=== PATIENT | male | born 1930 | race Caucasian/White ===

== ENCOUNTER 2017-11-29 10:48 | Emergency (ER) | payer MEDICARE, OTHER ==
[2017-11-29 11:26] LABS: POC GLUCOSE 170 mg/dL (70-99)
[2017-11-29 11:35] LABS: ADD MAN DIFF? NO
[2017-11-29 11:39] LABS: BASO % 1 % (0-3); EOS % 2 % (0-3); HEMATOCRIT 31.7 % (39.0-53.0); HEMOGLOBIN 10.3 g/dL (13.0-17.5); LYMPH # 1.3 x10^3/uL (1.0-4.8); LYMPH % 27 % (24-48); MEAN CORPUSCULAR HEMOGLOBIN 29 pg (25-35); MEAN CORPUSCULAR HGB CONC 33 g/dL (31-37); MEAN CORPUSCULAR VOLUME 88 fL (79-100); MONO % 6 % (0-9); NEUT % 64 % (31-73); PLATELET COUNT 238 x10^3/uL (140-400); RED BLOOD COUNT 3.62 x10^6/uL (4.30-5.70); RED CELL DISTRIBUTION WIDTH 13.6 % (11.5-14.5); WHITE BLOOD COUNT 4.9 x10^3/uL (4.0-11.0)
[2017-11-29 11:49] LABS: ANION GAP 11 (6-14); BLOOD UREA NITROGEN 38 mg/dL (8-26); BUN/CREATININE RATIO 24 (6-20); CALCIUM 9.1 mg/dL (8.5-10.1); CARBON DIOXIDE 23 mmol/L (21-32); CHLORIDE 103 mmol/L (98-107); CREATININE 1.6 mg/dL (0.7-1.3); GFR 41.2; GLUCOSE 214 mg/dL (70-99); POTASSIUM 4.3 mmol/L (3.5-5.1); SODIUM 137 mmol/L (136-145)
[2017-11-29 11:55] LABS: ALBUMIN 3.4 g/dL (3.4-5.0); ALBUMIN/GLOBULIN RATIO 0.9 (1.0-1.7); ALK PHOS 53 U/L (46-116); ALT (SGPT) 13 U/L (16-63); AST (SGOT) 14 U/L (15-37); TOTAL BILIRUBIN 0.2 mg/dL (0.2-1.0); TOTAL PROTEIN 7.3 g/dL (6.4-8.2)
[2017-11-29 12:01] LABS: NT-PRO BNP 424 pg/mL (0-449)
[2017-11-29] MEDS: IV NORMAL SALINE 1000ML BAG 1,000 ML IV (12:02)
[2017-11-29 13:45] LABS: BILIRUBIN,URINE NEGATIVE (NEG); GLUCOSE,URINE NEGATIVE (NEG); NITRITE,URINE NEGATIVE (NEG); PROTEIN,URINE NEGATIVE (NEG-TRACE); UROBILINOGEN,URINE 0.2 mg/dL (0.2 mg/dL)
[2017-11-29 14:05] LABS: BACTERIA,URINE FEW /HPF (0-FEW); RBC,URINE 0 /HPF (0-2); SQUAMOUS EPITHELIAL CELL,UR FEW /LPF
[2017-11-29 14:26] LABS: LACTIC ACID 0.5 mmol/L (0.4-2.0)
[2017-11-29 14:30] LABS: AMMONIA < 10 mcmol/L (11-34)
== END 2017-11-29 15:00 | disposition home or self-care (01) ==
LOC: ER 10:48
DX: S00.01XA Abrasion of scalp, initial encounter (principal); S29.9XXA Unspecified injury of thorax, initial encounter; E11.9 Type 2 diabetes mellitus without complications; K21.9 Gastro-esophageal reflux disease without esophagitis; I10 Essential (primary) hypertension; W01.198A Fall on same level from slipping, tripping and stumbling with subsequent striking against other object, initial encounter; Y93.89 Activity, other specified; Y92.090 Kitchen in other non-institutional residence as the place of occurrence of the external cause; Y99.8 Other external cause status
CPT/HCPCS: 36415; 70450; 71010; 71100; 80053; 81001; 82140; 82962; 83605; 83880; 84443; 85025; 87040; 93005; 96360; 99285-25; J7030

== ENCOUNTER 2021-03-06 09:02 | Emergency (ER) | payer MEDICARE, OTHER ==
[~2021-03-06] VITALS: Ht 180.3 cm; Wt 100.0 kg
--- NOTE | 2021-03-06 09:24 | PHYS DOC ---
Past Medical History Past Medical History: Diabetes-Type II, GERD, Hypertension Past Surgical History: Tonsillectomy, Other Additional Past Surgical Histo: HERNIA Smoking Status: Never Smoker Alcohol Use: None Drug Use: None General Adult EDM: Chief Complaint: NEAR SYNCOPE HPI: HPI: Patient is a 89 year old male who was brought here by EMS from home due to nausea vomiting, headache, neck pain. Patient lives alone by himself, up until 2 years ago he was on 10 different medications. He decided to stop taking all his medication because he did not like them. Patient fell in the restroom 10 days ago, hit his head on the ground, loss of consciousness. Patient has had headache and neck pain since. He somehow did not seek medical attention. This morning he called his son to come because he feels nauseous. When his son came patient was found to be confused had several episodes of nausea vomiting. EMS were called, when they arrived to the scene, patient was pale and diaphoresis. He was acting confused, complain of headache and neck pain. Patient denies any abdominal pain, no chest pain, no trouble breathing. Patient denies any extremity pain. Review of Systems: Review of Systems: Constitutional: Denies fever or chills. [] Eyes: Denies change in visual acuity. [] HENT: Denies nasal congestion or sore throat. [] Respiratory: Denies cough or shortness of breath. [] Cardiovascular: Denies chest pain or edema. [] GI: Denies abdominal pain, Positive for nausea, vomiting, no bloody stools or diarrhea. [] : Denies dysuria. [] Musculoskeletal: Denies back pain, positive for neck pain. Integument: Denies rash. [] Neurologic: positive for headache, no focal weakness or sensory changes. [] Endocrine: Denies polyuria or polydipsia. [] Lymphatic: Denies swollen glands. [] Psychiatric: Denies depression or anxiety. [] Heart Score: C/O Chest Pain: N/A Risk Factors: Risk Factors: DM, Current or recent (<one month) smoker, HTN, HLP, family history of CAD, obesity. Risk Scores: Score 0 - 3: 2.5% MACE over next 6 weeks - Discharge Home Score 4 - 6: 20.3% MACE over next 6 weeks - Admit for Clinical Observation Score 7 - 10: 72.7% MACE over next 6 weeks - Early Invasive Strategies Allergies: Allergies: Allergies Coded Allergies Type Severity Reaction Last Updated Verified No Known Drug Allergies 11/29/17 No Physical Exam: PE: Constitutional: Well developed, well nourished, no acute distress, non-toxic appearance. [] HENT: Normocephalic, atraumatic, bilateral external ears normal, oropharynx moist, no oral exudates, nose normal. [] Eyes: PERRLA, EOMI, conjunctiva normal, no discharge. [] Neck: Normal range of motion, no tenderness, supple, no stridor. [] Cardiovascular:Heart rate regular rhythm, no murmur [] Lungs & Thorax: Bilateral breath sounds clear to auscultation [] Abdomen: Bowel sounds normal, soft, no tenderness, no masses, no pulsatile masses. [] Skin: Warm, dry, no erythema, no rash. [] Back: No tenderness, no CVA tenderness. [] Extremities: No tenderness, no cyanosis, no clubbing, ROM intact, no edema. [] Neurologic: Alert and oriented X 3, normal motor function, normal sensory function, no focal deficits noted. [] Psychologic: Affect normal, judgement normal, mood normal. [] Current Patient Data: Labs: Laboratory Tests Test 03/06/21 06:30 03/06/21 09:13 FB-Dhj-Q-Type Natriuretic Peptide 817 pg/mL White Blood Count 4.4 x10^3/uL Red Blood Count 3.32 x10^6/uL Hemoglobin 10.2 g/dL Hematocrit 30.8 % Mean Corpuscular Volume 93 fL Mean Corpuscular Hemoglobin 31 pg Mean Corpuscular Hemoglobin Concent 33 g/dL Red Cell Distribution Width 13.5 % Platelet Count 226 x10^3/uL Neutrophils (%) (Auto) 70 % Lymphocytes (%) (Auto) 25 % Monocytes (%) (Auto) 5 % Eosinophils (%) (Auto) 0 % Basophils (%) (Auto) 1 % Neutrophils # (Auto) 3.0 x10^3/uL Lymphocytes # (Auto) 1.1 x10^3/uL Monocytes # (Auto) 0.2 x10^3/uL Eosinophils # (Auto) 0.0 x10^3/uL Basophils # (Auto) 0.0 x10^3/uL Sodium Level 136 mmol/L Potassium Level 3.7 mmol/L Chloride Level 99 mmol/L Carbon Dioxide Level 20 mmol/L Anion Gap 17 Blood Urea Nitrogen 28 mg/dL Creatinine 1.7 mg/dL Estimated GFR (Cockcroft-Gault) 38.1 BUN/Creatinine Ratio 16 Glucose Level 272 mg/dL Calcium Level 8.7 mg/dL Magnesium Level 1.8 mg/dL Total Bilirubin 0.6 mg/dL Aspartate Amino Transf (AST/SGOT) 26 U/L Alanine Aminotransferase (ALT/SGPT) 20 U/L Alkaline Phosphatase 67 U/L Creatine Kinase 81 U/L Troponin I Quantitative < 0.017 ng/mL Total Protein 7.5 g/dL Albumin 3.7 g/dL Albumin/Globulin Ratio 1.0 Lipase 83 U/L Current Medications Medications (Trade) Dose Ordered Sig/Jorge Route PRN Reason Start Time Stop Time Status Last Admin Dose Admin Ondansetron HCl (Zofran) 4 mg 1X ONCE IVP 03/06/21 09:45 03/06/21 09:46 DC 03/06/21 09:42 Hydralazine HCl (Apresoline Inj) 10 mg 1X ONCE IVP 03/06/21 09:45 03/06/21 09:46 DC 03/06/21 10:17 Hydralazine HCl (Apresoline Inj) 10 mg 1X ONCE IVP 03/06/21 10:45 03/06/21 10:46 DC 03/06/21 10:46 Nicardipine HCl 50 mg/Sodium Chloride 250 ml @ 25 mls/hr CONT PRN IV SEE I/O RECORD 03/06/21 10:45 03/06/21 10:50 EKG: EKG: ekg was done at 909, heart rate of 77 BPM, PVC, NO STEMI. NO P WAVE. Radiology/Procedures: Radiology/Procedures: [][facility] [address] [place] [address] IMAGING REPORT Signed PATIENT: STEFANIE MUÑOZ ACCOUNT: [id number] : 1930 LOCATION: ER AGE: 89 SEX: M EXAM STATUS: REG ER ORD. PHYSICIAN: HOBSON,PETER T DO REASON: fell in the toilet 4 days ago, having neck pain, acting confused since. PROCEDURE: CT HEAD AND CERVICAL SPINE WO CT HEAD AND C-SPINE WO Date: 03/06/2021 9:36 AM Clinical Indication: fell in the toilet 4 days ago, having neck pain, acting confused since. / Spl. Instructions: / History: Comparison: CT head 11/29/2017. Technique: 5 mm axial tomographic images were obtained of the head without c ontrast. These were viewed on brain and bone windows. Noncontrast CT of the cervical spine was performed. Sagittal and coronal reformats were performed and evaluated. One or more of the following dose reduction techniques were utilized: Automated exposure control (AEC), Adjustment of mA and/or kV according to patient size, Use of iterative reconstruction technique such as ASiR, CT scan done according to ALARA and image gently/image wisely HEAD FINDINGS: Acute subarachnoid hemorrhage centered around the midbrain and sixto with extension superiorly into the suprasellar cisterns and inferiorly through the foramen magnum and around the upper cervical spine. Hemorrhage is also within the third and fourth ventricles, with trace hemorrhage layering in the occipital horns of the lateral ventricles. Dilatation of the lateral and third ventricles. Mild generalized cerebral and cerebellar volume loss. Mild nonspecific periventricular hypoattenuation, most commonly seen with chronic small vessel ischemic disease. The visualized paranasal sinuses are normal. The visualized portions of the orbits and globes are normal. The mastoid air cells are clear. No aggressive osseous lesion or fracture. CERVICAL SPINE FINDINGS: The cervical spine is normally aligned. No acute fracture. Partial atlantooccipital assimilation on the right. Moderate multilevel degenerative disc space height loss. Multilevel mild spinal canal stenosis secondary to disc protrusions and marginal osteophytes. Multilevel mild and moderate neuroforaminal narrowing secondary to uncovertebral arthrosis. Multilevel moderate to severe facet arthrosis. Osseous fusion across multiple facet joints. The thyroid gland is normal. No cervical lymphadenopathy. Bilateral carotid atherosclerosis. The visualized aerodigestive tract is normal. The visualized portions of the lungs are clear. IMPRESSION: 1. Acute subarachnoid hemorrhage centered around the midbrain and sixto with extension superiorly into the suprasellar cisterns and inferiorly through the foramen magnum and around the upper cervical spine. CTA is recommended for further evaluation. 2. Intraventricular hemorrhage is also present with dilatation of the lateral and third ventricles suggestive of developing hydrocephalus. 3. No acute cervical spine fracture FOR INTERNAL CODING PURPOSES Critical result: Findings discussed with Dr. Hobson at 03/06/2021 10:29 AM. RESULT CODE: (C) Electronically signed by: Leona Cordero MD (03/06/2021 10:41 AM) [id number] DICTATED and SIGNED BY: LEONA CORDERO MD DATE: 03/06/21 [id number] [facility] [address] [place] [address] IMAGING REPORT Signed PATIENT: STEFANIE MUÑOZ ACCOUNT: [id number] : 1930 LOCATION: ER AGE: 89 SEX: M EXAM STATUS: REG ER ORD. PHYSICIAN: LUPILLO HOBSON DO REASON: soa PROCEDURE: CHEST AP ONLY XR CHEST 1V Clinical Indication: Reason: soa / Comparison: AP chest November 29, 2017. Findings: The cardiomediastinal silhouette is normal. There are tiny bilateral calcified granulomas. Lungs are clear. There is no pneumothorax. No pleural effusion is appreciated. No acute bone abnormality. There is moderate degenerative endplate spurring of the thoracic spine. IMPRESSION: No acute cardiopulmonary process. Electronically signed by: Carl Busby MD (03/06/2021 10:44 AM) [id number] DICTATED and SIGNED BY: CARL BUSBY MD DATE: 03/06/21 [id number] 0 Course & Med Decision Making: Course & Med Decision Making Pertinent Labs and Imaging studies reviewed. (See chart for details) Patient is an 89-year-old male who is DNR/DNI per his son, who was brought here by EMS from home due to headache, nausea vomiting. Patient was found to be hypertensive urgency, noncompliant with his hypertensive medication. CT scan his head and C-spine show subarachnoid hemorrhage suspicious for ruptured aneurysm. Patient was given hydralazine IV for his hypertension, and a Cardene drip was started. 10:30 AM: this physician discussed patient's condition and CT finding with the Neurosurgeon corporate relations manager, Dr. John Herrera. He said he reviewed the CT scan and recommended that patient need to be urgently transferred to [facility], HE SUSPECTED THAT PATIENT HAS A RUPTURED Aneurysm. He said he has a big case right now in the OR, cannot see patient himself. 10:42 AM, this physician called [facility], discussed with the triage nurse there, gave all information, triage nurse will contact their neurosurgeon and will call back later. At 1200, triage nurse called back, accepted patient for transfer there, accepted by Dr. Garett Stoll, neurosurgeon. Discussed with patient and his son who area amenable to plan of care. Critical care time was [45] minutes which includes time at bedside, spent in discussion of patient's care with specialist and/or family members, with in terpretation of laboratory and/or radiological studies and is exclusive of procedures. Dragon Disclaimer: Dragon Disclaimer: This electronic medical record was generated, in whole or in part, using a voice recognition dictation system. Departure Departure Impression: Primary Impression: Subarachnoid hemorrhage Additional Impressions: Hypertensive urgency Hyperglycemia Disposition: 02 DC/TRF OTHER SHORT TERM HOS (Transfer to [facility], Accepted by Dr. Garett Stoll) Condition: STABLE Referrals: HALEY GARCIA (PCP) LUPILLO HOBSON DO Mar 06, 2021 09:24
[2021-03-06 09:27] LABS: BASO % 1 % (0-3); EOS % 0 % (0-3); HEMATOCRIT 30.8 % (39.0-53.0); HEMOGLOBIN 10.2 g/dL (13.0-17.5); LYMPH # 1.1 x10^3/uL (1.0-4.8); LYMPH % 25 % (24-48); MEAN CORPUSCULAR HEMOGLOBIN 31 pg (25-35); MEAN CORPUSCULAR HGB CONC 33 g/dL (31-37); MEAN CORPUSCULAR VOLUME 93 fL (79-100); MONO # 0.2 x10^3/uL (0.0-1.1); MONO % 5 % (0-9); NEUT % 70 % (31-73); PLATELET COUNT 226 x10^3/uL (140-400); RED BLOOD COUNT 3.32 x10^6/uL (4.30-5.70); RED CELL DISTRIBUTION WIDTH 13.5 % (11.5-14.5); WHITE BLOOD COUNT 4.4 x10^3/uL (4.0-11.0)
[2021-03-06] MEDS ORDERED: hydrALAZINE 20 MG/ML VIAL. IVP ONE ×2 (09:45→10:45)
[2021-03-06] MEDS ORDERED: ONDANSETRON PF 4 MG/2 ML VIAL. IVP ONE (09:45)
[2021-03-06 09:46] LABS: CALCIUM 8.7 mg/dL (8.5-10.1); CREATININE 1.7 mg/dL (0.7-1.3); GFR 38.1; POTASSIUM 3.7 mmol/L (3.5-5.1)
--- NOTE | 2021-03-06 09:51 | PDOC2 ---
CARDIAC CONSULT ALLERGIES ALLERGIES: Coded Allergies: No Known Drug Allergies (Unverified , 11/29/17) VITALS/I&O VITALS/I&O: Vital Signs Date Time Temp Pulse Resp B/P (MAP) Pulse Ox O2 Delivery O2 Flow Rate FiO2 03/06/21 09:07 97.6 84 18 234/91 (138) 98 Room Air 97.6 LABS Lab: Laboratory Tests Test 03/06/21 09:13 White Blood Count 4.4 x10^3/uL (4.0-11.0) Red Blood Count 3.32 x10^6/uL (4.30-5.70) L Hemoglobin 10.2 g/dL (13.0-17.5) L Hematocrit 30.8 % (39.0-53.0) L Mean Corpuscular Volume 93 fL (79-100) Mean Corpuscular Hemoglobin 31 pg (25-35) Mean Corpuscular Hemoglobin Concent 33 g/dL (31-37) Red Cell Distribution Width 13.5 % (11.5-14.5) Platelet Count 226 x10^3/uL (140-400) Neutrophils (%) (Auto) 70 % (31-73) Lymphocytes (%) (Auto) 25 % (24-48) Monocytes (%) (Auto) 5 % (0-9) Eosinophils (%) (Auto) 0 % (0-3) Basophils (%) (Auto) 1 % (0-3) Neutrophils # (Auto) 3.0 x10^3/uL (1.8-7.7) Lymphocytes # (Auto) 1.1 x10^3/uL (1.0-4.8) Monocytes # (Auto) 0.2 x10^3/uL (0.0-1.1) Eosinophils # (Auto) 0.0 x10^3/uL (0.0-0.7) Basophils # (Auto) 0.0 x10^3/uL (0.0-0.2) Laboratory Tests 03/06/21 09:13 RYAN MARKS APRN Mar 06, 2021 09:51
[2021-03-06 09:52] LABS: ALBUMIN 3.7 g/dL (3.4-5.0); MAGNESIUM 1.8 mg/dL (1.8-2.4); TOTAL BILIRUBIN 0.6 mg/dL (0.2-1.0); TOTAL PROTEIN 7.5 g/dL (6.4-8.2)
--- NOTE | 2021-03-06 10:25 | EKG ---
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
--- NOTE | 2021-03-06 10:25 | EKG ---
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
--- NOTE | 2021-03-06 10:43 | RAD ---
CT HEAD AND C-SPINE WO Date: 03/06/2021 9:36 AM Clinical Indication: fell in the toilet 4 days ago, having neck pain, acting confused since. / Spl. I nstructions: / History: Comparison: CT head 11/29/2017. Technique: 5 mm axial tomographic images were obtained of the head without contrast. These were view ed on brain and bone windows. Noncontrast CT of the cervical spine was performed. Sagittal and dodge l reformats were performed and evaluated. One or more of the following dose reduction techniques were utilized: Automated exposure control (AEC), Adjustment of mA and/or kV according to patient size, Us e of iterative reconstruction technique such as ASiR, CT scan done according to ALARA and image gentl y/image wisely HEAD FINDINGS: Acute subarachnoid hemorrhage centered around the midbrain and sixto with extension superiorly into th e suprasellar cisterns and inferiorly through the foramen magnum and around the upper cervical spine. Hemorrhage is also within the third and fourth ventricles, with trace hemorrhage layering in the occ ipital horns of the lateral ventricles. Dilatation of the lateral and third ventricles. Mild generalized cerebral and cerebellar volume loss. Mild nonspecific periventricular hypoattenuatio n, most commonly seen with chronic small vessel ischemic disease. The visualized paranasal sinuses are normal. The visualized portions of the orbits and globes are no rmal. The mastoid air cells are clear. No aggressive osseous lesion or fracture. CERVICAL SPINE FINDINGS: The cervical spine is normally aligned. No acute fracture. Partial atlantooccipital assimilation on t he right. Moderate multilevel degenerative disc space height loss. Multilevel mild spinal canal stenosis second stephon to disc protrusions and marginal osteophytes. Multilevel mild and moderate neuroforaminal narrowi ng secondary to uncovertebral arthrosis. Multilevel moderate to severe facet arthrosis. Osseous fusio n across multiple facet joints. The thyroid gland is normal. No cervical lymphadenopathy. Bilateral carotid atherosclerosis. The visu alized aerodigestive tract is normal. The visualized portions of the lungs are clear. IMPRESSION: 1. Acute subarachnoid hemorrhage centered around the midbrain and sixto with extension superiorly into the suprasellar cisterns and inferiorly through the foramen magnum and around the upper cervical spi ne. CTA is recommended for further evaluation. 2. Intraventricular hemorrhage is also present with dilatation of the lateral and third ventricles hunt ggestive of developing hydrocephalus. 3. No acute cervical spine fracture FOR INTERNAL CODING PURPOSES Critical result: Findings discussed with Dr. Kat at 03/06/2021 10:29 AM. RESULT CODE: (C) Electronically signed by: Wes Cordero MD (03/06/2021 10:41 AM) [id number]
--- NOTE | 2021-03-06 10:47 | RAD ---
XR CHEST 1V Clinical Indication: Reason: soa / Comparison: AP chest November 29, 2017. Findings: The cardiomediastinal silhouette is normal. There are tiny bilateral calcified granulomas. Lungs are clear. There is no pneumothorax. No pleural effusion is appreciated. No acute bone abnormality. There is moderate degenerative endplate spurring of the thoracic spine. IMPRESSION: No acute cardiopulmonary process. Electronically signed by: Carl Busby MD (03/06/2021 10:44 AM) [id number]
[2021-03-06] MEDS ORDERED: fentaNYL PF VIAL 100 MCG/2 ML VIAL IVP ONE (11:15)
[2021-03-06 11:20] LABS: PROTHROMBIN TIME PATIENT 12.9 SEC (11.7-14.0)
[2021-03-06 12:14] VITALS: BP 124/51
--- NOTE | 2021-03-07 10:03 | NUR ---
IP: Notified [facility], concerning pt's negative COVID test. Results faxed.
== END 2021-03-06 12:28 | disposition short-term general hospital (02) ==
LOC: ER 09:02
DX: I60.8 Other nontraumatic subarachnoid hemorrhage (principal); I16.0 Hypertensive urgency; Z20.822 Contact with and (suspected) exposure to COVID-19; R11.2 Nausea with vomiting, unspecified; R51.9 Headache, unspecified; E11.65 Type 2 diabetes mellitus with hyperglycemia; M54.2 Cervicalgia; E11.9 Type 2 diabetes mellitus without complications; K21.9 Gastro-esophageal reflux disease without esophagitis; I10 Essential (primary) hypertension; Z90.89 Acquired absence of other organs; Z98.890 Other specified postprocedural states
CPT/HCPCS: 36415; 70450; 71045; 72125; 80053; 82550; 83690; 83735; 83880; 84484; 85025; 85610; 85730; 87426; 93005; 96365; 96375; 99291; J0360; J2405; J3010; J3490; J7050; U0003; U0005; J7030